=== PATIENT | male | born 1995 | race African-American/Black ===

== ENCOUNTER 2022-06-17 15:20 | Emergency (ER) | payer OTHER ==
[~2022-06-17] VITALS: Ht 193 cm; Wt 81.6 kg
[2022-06-17] MEDS ORDERED: LIDOCAINE HCL 2% LOCAL 20 ML VIAL INJ STA (15:39)
[2022-06-17] MEDS ORDERED: LIDOCAINE HCL 2% LOCAL 20 ML VIAL ONE (15:54)
[2022-06-18] MEDS ORDERED: DIPHENHYDRAMINE50 M1 PO (08:00)
[2022-06-18] MEDS ORDERED: ACETAMINOPHEN650 M1 PO (08:00)
[2022-06-18] MEDS ORDERED: IBUPROFEN200 MG PO (08:00)
[2022-06-18] MEDS ORDERED: NEURONTIN300 MG PO (08:08)
== END 2022-06-17 16:43 | disposition home or self-care (01) ==
LOC: FSED 15:31
DX: S61.215A Laceration without foreign body of left ring finger without damage to nail, initial encounter (principal); W25.XXXA Contact with sharp glass, initial encounter; Y92.89 Other specified places as the place of occurrence of the external cause
CPT/HCPCS: 12001; 73140; 99283; J2001

== ENCOUNTER 2022-06-18 07:51 | Emergency (ER) | payer BC, OTHER ==
[~2022-06-18] VITALS: Ht 193 cm; Wt 81.6 kg
[2022-06-18] MEDS ORDERED: IBUPROFEN200 MG PO (08:00)
[2022-06-18] MEDS ORDERED: DIPHENHYDRAMINE50 M1 PO (08:00)
[2022-06-18] MEDS ORDERED: ACETAMINOPHEN650 M1 PO (08:00)
[2022-06-18] MEDS ORDERED: NEURONTIN300 MG PO (08:08)
[2022-06-18] MEDS ORDERED: IBUPROFEN 600 MG TAB PO ONE (08:15)
[2022-06-18] MEDS ORDERED: BACITRACIN ZINC 0.9GM TP ONE ×2 (08:21→12:45)
[2022-06-18] MEDS ORDERED: KETOROLAC TROMETHAMINE 30 MG/ML VIAL ONE (08:21)
[2022-06-18] MEDS ORDERED: KETOROLAC TROMETHAMINE 30 MG/ML VIAL IV STA (12:33)
== END 2022-06-18 08:17 | disposition home or self-care (01) ==
LOC: FSED 07:56
DX: Z48.01 Encounter for change or removal of surgical wound dressing (principal)
CPT/HCPCS: 96372; 99283; J1885

== ENCOUNTER 2022-06-27 10:45 | Emergency (ER) | payer BC ==
[~2022-06-27] VITALS: Ht 193 cm; Wt 77.1 kg
[~2022-06-27 10:45] MED LIST: ACETAMINOPHEN650 M1 PO; DIPHENHYDRAMINE50 M1 PO; IBUPROFEN200 MG PO; NEURONTIN300 MG PO
== END 2022-06-27 11:04 | disposition home or self-care (01) ==
LOC: FSED 10:57
DX: Z48.02 Encounter for removal of sutures (principal)
CPT/HCPCS: 99282; S0630

== ENCOUNTER 2023-01-13 02:37 | Emergency (ER) | payer BC ==
[~2023-01-13] VITALS: Ht 193 cm; Wt 85.7 kg
[2023-01-13 04:53] VITALS: BP 129/81
== END 2023-01-13 04:53 | disposition home or self-care (01) ==
LOC: FSED 02:44
DX: R07.89 Other chest pain (principal); R06.02 Shortness of breath
CPT/HCPCS: 71046; 93005; 99282

== ENCOUNTER 2024-07-15 06:52 | Observation (INO) | payer BC ==
[2024-07-14 13:25] LABS: BASOPHILS % 0.4 % (0.0-1.0); EOSINOPHILS % 0.6 % (0.0-6.0); HEMATOCRIT 45.1 % (38.2-49.6); HEMOGLOBIN 15.4 g/dL (14.0-18.0); LYMPHOCYTES # (AUTO) 1.6 (1.0-3.2); MEAN CORPUSCULAR HEMOGLOBIN 32.5 pg (28-32); MEAN CORPUSCULAR HGB CONC 34.1 g/dL (31-35); MEAN CORPUSCULAR VOLUME 95.1 fL (81-99); MONOCYTES # (AUTO) 0.3 (0.2-0.8); MONOCYTES % 6.6 % (4.4-11.3); NEUTROPHILS # (AUTO) 2.9 (2.1-6.9); NEUTROPHILS % 59.4 % (38.7-80.0); PLATELET COUNT 153 x10e3/uL (140-360); RED BLOOD COUNT 4.74 x10e6/uL (4.3-5.7); RED CELL DISTRIBUTION WIDTH 12.5 % (11.7-14.4); WHITE BLOOD COUNT 4.85 x10e3/uL (4.8-10.8)
[2024-07-14 13:45] LABS: ALBUMIN 4.6 g/dL (3.5-5.0); ALBUMIN/GLOBULIN RATIO 1.8 (0.8-2.0); ANION GAP 11.4 mmol/L (8-16); BILIRUBIN,TOTAL 1.1 mg/dL (0.2-1.2); CALCIUM 9.3 mg/dL (8.4-10.2); CREATININE, SERUM 1.04 mg/dL (0.72-1.25); POTASSIUM 4.4 mmol/L (3.5-5.1); TOTAL PROTEIN 7.2 g/dL (6.5-8.1)
[~2024-07-15] VITALS: Ht 193 cm; Wt 84.4 kg
[2024-07-15] MEDS: LACTATED RINGER'S 1,000 ML ONE (06:39)
[~2024-07-15 06:52] MED LIST changes: +[UNRECOGNIZED DRUG - OTHER] INJ; +[UNRECOGNIZED DRUG - REMARK] INJ
[2024-07-15] MEDS ORDERED: LIDOCAINE JELLY 2% 10ML URO-JET ONE (08:13)
[2024-07-15] MEDS ORDERED: BUPIVACAINE 0.25% 30ML SDV ONE (08:13)
[2024-07-15] MEDS ORDERED: LIDOCAINE 1% W/EPINEPHRINE 20 ML VIAL ONE (08:13)
[2024-07-15] MEDS ORDERED: ONDANSETRON HCL INJ 2MG/ML 2ML 2 MG/ML VIAL IV PRN (10:00)
[2024-07-15] MEDS ORDERED: ACETAMINOPHEN 1000 MG/100 ML IV ONE (11:18)
[2024-07-15] MEDS ORDERED: ONDANSETRON HCL INJ 2MG/ML 2ML 2 MG/ML VIAL ONE (11:18)
[2024-07-15] MEDS ORDERED: SEVOFLURANE INHAL SOLN 250 ML PEN BTL ONE (11:18)
[2024-07-15] MEDS ORDERED: ETOMIDATE 2 MG/ML 10 ML INJ IV ONE (11:18)
[2024-07-15] MEDS ORDERED: PROPOFOL IV EMULSION 10 MG/ML 20 ML VIAL ONE (11:18)
[2024-07-15] MEDS ORDERED: DEXAMETHASONE SOD PHOS INJ 4 MG/ML SDV ONE (11:18)
[2024-07-15] MEDS ORDERED: PHENYLEPHRINE HCL 1% 10 MG/ML VIAL ONE (11:18)
[2024-07-15 12:00] VITALS: BP 122/85; PULSE 78; RESP 16; TEMP 98.5; O2SAT 100
[2024-07-15 12:07] VITALS: BP 122/85; PULSE 80; RESP 18; TEMP 98.4; O2SAT 99
[2024-07-15] MEDS: SODIUM CHLORIDE 0.9% 1000ML 1,000 ML IV SCH (12:17)
[2024-07-15] MEDS ORDERED: MIDAZOLAM HCL 2 MG/2 ML VIAL ONE (12:57)
[2024-07-15] MEDS ORDERED: FENTANYL CITRATE/PF 100MCG/2 ML INJ ONE (12:57)
[2024-07-15] MEDS: HYDROMORPHONE 1MG/1ML INJ IV PRN (15:31)
[2024-07-15 16:40] VITALS: BP 97/59; PULSE 70; RESP 18; TEMP 98; O2SAT 98
[2024-07-15] MEDS: HYDROCODONE/APAP 7.5MG-325MG 1 EA TAB PO PRN (17:38)
[2024-07-15 20:00] VITALS: BP 102/65; PULSE 65; RESP 18; TEMP 98.3; O2SAT 98
[2024-07-15] MEDS: KETOROLAC TROMETHAMINE 30 MG/ML VIAL IV PRN (21:25)
[2024-07-15 23:43] VITALS: BP 102/65; PULSE 65; RESP 18; TEMP 98.3; O2SAT 98
[2024-07-16] VITALS: BP 91/51; PULSE 68; RESP 18; TEMP 97.7; O2SAT 100
[2024-07-16 04:00] VITALS: BP 96/48; PULSE 56; RESP 18; TEMP 98; O2SAT 99
[2024-07-16 08:28] VITALS: BP 107/63; PULSE 60; RESP 20; TEMP 98.6; O2SAT 100
[2024-07-16 10:00] VITALS: BP 107/63; PULSE 60; RESP 20; TEMP 98.6; O2SAT 100
[2024-07-16 12:08] VITALS: BP 112/72; PULSE 61; RESP 20; TEMP 98.1; O2SAT 100
== END 2024-07-16 18:52 | disposition home or self-care (01) ==
LOC: OR 06:52 → PACU V 09:59 → MED/SURG3 11:58
PROVIDERS: ADMIT Surgery; ATTEND Surgery
DX: K64.8 Other hemorrhoids (principal); G89.29 Other chronic pain; R01.1 Cardiac murmur, unspecified; Z79.899 Other long term (current) drug therapy
CPT/HCPCS: 36415; 46260; 80053; 85025; 99252; G0378 ×2; J0131; J0694 ×2; J1100; J1170 ×2; J1885 ×2; J2250; J2371; J2405; J2704; J3010; J7030 ×2; J7121